=== PATIENT | female | born 1960 | race Caucasian/White ===

== ENCOUNTER → 2023-04-23 | Outpatient (CLI) | payer OTHER, BC, SELFPAY ==
--- NOTE | 2023-04-23 10:47 | RAD_ITS ---
INDICATION: injury EXAMINATION/TECHNIQUE: X-RAY - RIGHT XR Foot Min 3 Views 3 VIEWS COMPARISON: No relevant prior comparison study available FINDINGS: SOFT TISSUES: No soft tissue swelling or gas. No radiopaque foreign body. BONES/JOINTS: There is a cortical defect within the distal diaphysis of the third metatarsal. There is a cortical defect within the distal diaphysis of the fourth metatarsal as well. Normal alignment. Preservation of the joint space.. No sclerotic or destructive changes observed. RAD/Foot min 3 Views IMPRESSION: Third and fourth metatarsal fractures. Electronically Signed: Christa Larsen MD at 12:01 EDT ,
== END | disposition home or self-care (01) ==
PROVIDERS: PCP Family Medicine; Referring Provider Physician Assistant; Visit Provider Physician Assistant
DX: S99.921A Unspecified injury of right foot, initial encounter (principal)
CPT/HCPCS: 73630

== ENCOUNTER → 2023-04-30 | Outpatient (CLI) | payer OTHER, SELFPAY ==
--- NOTE | 2023-04-30 10:02 | RAD_ITS ---
HISTORY: pain. TECHNIQUE: XR Knee Complete 4 Views or More. COMPARISON: None. FINDINGS: BONES : No acute fracture identified. Mineralization unremarkable. Small patellar osteophytes. JOINTS: No dislocation. Mild degenerative change. Trace joint effusion. SOFT TISSUES: Mild anterior soft tissue swelling. RAD/Knee 4 or More Views IMPRESSION: No acute fracture or dislocation identified in the right knee. Electronically Signed: Nicolette Nair MD at 11:06 EDT ,
== END | disposition home or self-care (01) ==
PROVIDERS: PCP Family Medicine; Referring Provider Physician Assistant; Visit Provider Physician Assistant
DX: M25.561 Pain in right knee (principal)
CPT/HCPCS: 73564

== ENCOUNTER 2023-07-03 12:00 | Outpatient (RCR) | payer OTHER, BC, SELFPAY ==
--- NOTE | 2023-06-05 18:18 | HP.PTEVAL_ITS ---
Patient's Visit Information Visit Information Visit Information: SAIGE MEJIA is a 63 year old F referred to Physical Therapy by Dr. Zane Serrano MD with a diagnosis of Metatarsal fx R foot 04/22. Date of Evaluation: 06/05/23 Physical Therapist: Lazaro Minaya, DPT, OCS, CSCS Visit Plan Frequency: 3x /Week Duration: 4-6 Weeks Plan: 3x/week for 4-6 weeks for 1. R toe and ankle STM and PROM, 2. AROM R ankle and foot, strength R ankle, prorioception R foot 3. PRregait to gait training without boot Pt is gentle WBAT R foot but is scared and hesitant to shift weight FW. ice, MH, Subjective Subjective: fell at work 04/22/23 stepping up onto a curb, Rolled R foot in. Couldn't walk on foot immediately, had to use heel. Went to work and had ice on it. Could not put pressure on it. [facility] to [facility]. X rays the next day, fractured 3 toes. Been in and out of boot since then, it was on for first few weeks FWB. Tried to get out of boot but does not go well. Doctor wants her to work toward shoe. Pain in toes up to 8/10 sharp to put it up on something , pretty comfortable in boot now. Still walks on heal.Is doing some DF exercises and trying to walk without boot but only on heal. 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 Not able to drive either. Off for 6 weeks. Hobbies:Gardening and hubby Sebas is doing that now. Basic ADLs are getting done, can't take shower to step into tub. Pain R toes top foot: Pain Intensity (Out of 10): 0 Pain Intensity Range: 0 and 8 Objective Objective: R foot in boot walking in and walking without pain. Taking boot off resists WB anywhere except hindfoot onR to the point where the heal is slightly bruised. hesitant to shift weight to forefoot. This makes gait dysfunctional without boot at this point. Trasers chair and bed are I. Able to stand equal WB but alessio on lateral R foot is felt. Movement of toes and ankle on R leg is hesitant, definitive movement of all toes but only about 20% of what she gets on L toes. Ankle DF R -5 and L 5, PF is slow on R but full, inversiona nd eversion are hesitant on R but functional. Sensation in R 3/4/5 toes slightly numby feeling vs L. metatarsals are stiff and protected on R 3/4/5 vs L. pt seems very anxious about weight through R forefoot and needs much education regarding the safety of this. Once educated, she walks slightly better without much increased in pain during and improving gait pattern. Balance/Special Test Scores Lower Extremity Functional Score: 33 Goals Goal 1:: AROM R ankle and toes symmetrical to L without hesitation. 5 degrees AROM DF R. Goal Time Frame: 2-4 Weeks Goal 2:: strength R ankle 5/5 in DF and symmetrical with dynaomometer to L. Goal Time Frame: 2-4 Weeks Goal 3:: walk into and out of PT without boot with normalized gait pattern. Goal Time Frame: 4-6 Weeks Goal 4:: steps reciprocal without rail Goal Time Frame: 4-6 Weeks Goal 5:: Plan to return to work without limitations Goal Time Frame: 4-6 Weeks Goal 6:: LEFS score 74 Goal Time Frame: 4-6 Weeks Rehabilitation Potential Physical Therapy Diagnosis: R foot fracture causing funcitonal gait and mobility problems. Rehabilitation Potential: Good Anticipated Interventions Patient/Client Instruction: Educate patient on: Condition and Plan of Care For the Purpose of:: To decrease pain, To increase ROM, To improve nutrient delivery to tissue, To improve muscle performance and motor function, To increase tolerance to activity/condition/position and To improve gait and locomotor functions Therapeutic Exercise to Include: Strength training, Balance training, Flexibilty training, Gait and locomotor training, Passive ROM and Active ROM For the Purpose of:: To decrease pain, To increase ROM, To improve nutrient delivery to tissue, To improve muscle performance and motor function, To increa se tolerance to activity/condition/position, To improve ability of physical actions for home/community/work/leisure and To improve gait and locomotor functions Manual Therapy Techniques to Include: Mobilization, Passive ROM and Soft tissue mobilization For the Purpose of:: To decrease pain, To increase ROM and To improve nutrient delivery to tissue Cryotherapy (ice pack, ice massage): Yes Thermo therapy (hot pack): Yes For the Purpose of:: To decrease pain, To increase ROM and To improve nutrient delivery to tissue Text: Thank you for the opportunity to evaluate your patient. For Medicare and Medicare HMO plans, please review the plan of care and approve it. It will need to be FAXED BACK to us at [phone] for Medicare purposes. For Medicare only, by signing this I certify the plan of care. Please let me know if there are questions or concerns regarding this plan of care. Physician Signature: Date:
--- NOTE | 2023-10-10 14:32 | HP.PT.NRP ---
Patient Information Patient Information: SAIGE MEJIA was seen in my office for initial evaluation on 06/05/23. The following Plan of Care was established for this patient: POC Established Initial Frequency: 3x /Week Initial Duration: 4-6 Weeks Anticipated Interventions Patient/Client Instruction: Educate patient on: Condition and Plan of Care For the Purpose of:: To decrease pain, To increase ROM, To improve nutrient delivery to tissue, To improve muscle performance and motor function, To increase tolerance to activity/condition/position and To improve gait and locomotor functions Therapeutic Exercise to Include: Strength training, Balance training, Flexibilty training, Gait and locomotor training, Passive ROM and Active ROM For the Purpose of:: To decrease pain, To increase ROM, To improve nutrient delivery to tissue, To improve muscle performance and motor function, To increase tolerance to activity/condition/position, To improve ability of physical actions for home/community/work/leisure and To improve gait and locomotor functions Manual Therapy Techniques to Include: Mobilization, Passive ROM and Soft tissue mobilization For the Purpose of:: To decrease pain, To increase ROM and To improve nutrient delivery to tissue Cryotherapy (ice pack, ice massage): Yes Thermo therapy (hot pack): Yes For the Purpose of:: To decrease pain, To increase ROM and To improve nutrient delivery to tissue Last Seen Last Seen: This patient was last seen in our office 07/03/23. Pertinent comments regarding their Physical therapy will appear below: Pt seen 13 visits of POC but no showed for her last visit and recheck. At this point, it has been over 3 months and I will discontinue due to nonattendance. At this point I will be discontinuing this patient from physical therapy. I would be happy to see this patient again in the future if found appropriate by the physician. Thank you! Lazaro Minaya, DPT, OCS, CSCS Balance/Gait/Functional tests Balance/Special Test Scores Lower Extremity Functional Score: 56
== END 2023-07-03 19:00 | disposition home or self-care (01) ==
LOC: PT 12:00
PROVIDERS: PCP Family Medicine; Referring Provider Orthopaedic Surgery Sports Medicine; Visit Provider Orthopaedic Surgery Sports Medicine
DX: S92.301D Fracture of unspecified metatarsal bone(s), right foot, subsequent encounter for fracture with routine healing (principal)
CPT/HCPCS: 97110; 97140; 97161; 97530

== ENCOUNTER → 2023-12-30 | Outpatient (CLI) | payer BC, SELFPAY ==
[2023-12-30 12:59] LABS: Absolute Lymphocyte Count 1.76 X10^3/uL (0.83-4.51); Absolute Neutrophil Count 3.9 X10^3/uL (2.0-7.7); Basophil# 0.03 X10^3/uL; Basophil% 0.5 % (0-1); Eosinophil# 0.06 X10^3/uL; Hematocrit 43.3 % (37-47); Lymphocyte # 1.76 X10^3/ul (0.83-4.51); Lymphocyte % 28.1 % (19-41); Mean Corp Hgb Conc 32.3 g/dL (32-36); Mean Corpuscular Hgb 30.4 pg (27.0-32.0); Mean Corpuscular Volume 93.9 fL (81-99); Mean Platelet Vol. 13.2 fl (6.2-12.0); Monocyte# 0.49 X10^3/uL; Monocyte% 7.8 % (0-10); NRBC Flagged by Analyzer 0 % (0-5); Neutrophil # 3.92 X10^3/uL (2.7-7.7); Neutrophil % 62.4 % (47-70); POSITIVE COUNT YES; Platelet Count 175 K/mm3 (150-450); RBC Distribution Width CV 12.1 % (11.6-14.6); RBC Distribution Width SD 41.8 fl (35.1-43.9); Red Blood Count 4.61 M/mm3 (4.2-5.4); White Blood Count 6.3 K/mm3 (4.4-11.0)
[2023-12-30 13:11] LABS: ALB/GLOB Ratio 1.1 RATIO (0.9-2.4); AST(SGOT) 24 U/L (15-37); Alanine Aminotransfer ALT/SGPT 30 U/L (13-56); Alkaline Phosphatase 80 U/L (45-117); Anion Gap 5 (5-15); BUN 16 mg/dL (7-18); BUN/Creat Ratio 17.7 RATIO (10-20); Calcium,Total 9.8 mg/dL (8.5-10.1); Chloride 107 mmol/L (98-107); Cholesterol 182 mg/dL (200); EST Glomerular Filtration Rate 67 mL/min (>60); Est Glom Filt Rate - Afr Amer 81 mL/min (>60); Globulin 3.5 g/dL (2.2-4.2); Glucose 95 mg/dL (74-106); High Density Lipoprotein 44 mg/dL; Potassium 4.5 mmol/L (3.5-5.1); Protein, Total 7.5 g/dL (6.4-8.2); Sodium Level 140 mmol/L (136-145); Triglycerides 202 mg/dL; Very Low Density Lipoprotein 40 mg/dL (5-40)
== END | disposition home or self-care (01) ==
PROVIDERS: PCP Family Medicine; Visit Provider Family Medicine
DX: K58.9 Irritable bowel syndrome, unspecified (principal)
CPT/HCPCS: 36415; 80053; 80061; 85025

== ENCOUNTER → 2024-02-13 | Outpatient (CLI) | payer BC, SELFPAY ==
--- NOTE | 2024-02-13 07:50 | BI_ITS ---
MAMMOGRAPHY - BILATERAL SCREENING REASON FOR EXAM: Female, 63 years old. Routine annual screening examination. PERTINENT HISTORY: Non-contributory. TECHNIQUE: Digital bilateral breast claire (3D mammographic acquisition) in the CC and MLO projections. 2-D mediolateral oblique (MLO) and craniocaudad (CC) views of both breasts were obtained. CAD: Full Field Digital Mammography with Computer Added Detection was performed. COMPARISON: Comparison is made with prior outside examination dated November 06, 2016. FINDINGS: Breast Composition: The breasts are almost entirely fatty. There are no dominant masses or suspicious calcifications. Stable benign-appearing bilateral axillary lymph nodes. No other significant abnormalities are identified. There has been no significant change since the prior study. BI/SCRN MAMM (CAD)W/CLAIRE BILAT IMPRESSION: Stable bilateral screening mammogram. Yearly follow-up mammogram recommended. (A) ASSESSMENT CATEGORY: BIRADS Category 2: Benign. A letter regarding these results will be sent to the patient by the facility within 30 days. Approximately 10% of breast cancers are not detected by mammography. A normal mammogram should not delay biopsy of a clinically suspicious abnormality. [id number] Electronically Signed: Dany Kellogg MD at 8:57 EDT ,
== END | disposition home or self-care (01) ==
PROVIDERS: PCP Family Medicine; Referring Provider Family Medicine; Visit Provider Family Medicine
DX: Z12.31 Encounter for screening mammogram for malignant neoplasm of breast (principal)
CPT/HCPCS: 77063; 77067

== ENCOUNTER 2024-02-17 08:05 | Outpatient (CLI) | payer BC, SELFPAY | END 2024-02-17 23:59 | disposition home or self-care (01) | PROVIDERS: PCP Family Medicine; Referring Provider Family Medicine; Visit Provider Family Medicine | DX: Z83.79 Family history of other diseases of the digestive system (principal) | CPT/HCPCS: 36415 ==

== ENCOUNTER → 2025-07-22 | Outpatient (CLI) | payer BC, SELFPAY | END | disposition home or self-care (01) | LOC: LABSPEC 07-25 08:26 | PROVIDERS: PCP Family Medicine; Visit Provider Physician Assistant Surgical | DX: R82.90 Unspecified abnormal findings in urine (principal) | CPT/HCPCS: 87086; 87088 ==

== ENCOUNTER 2025-08-06 01:55 | Emergency (ER) | payer BC, SELFPAY ==
[2025-08-06] VITALS (7 sets, daily range): BP systolic 118–139; BP diastolic 73–88; PULSE 66–90; RESP 14–18; TEMP 36.2–36.6; O2SAT 100; BMI 25.4
--- NOTE | 2025-08-06 02:00 | EKG12_ITS ---
Test Reason : DYSRHYTHMIA Blood Pressure : */* mmHG Vent. Rate : 84 BPM Atrial Rate : 84 BPM P-R Int : 162 ms QRS Dur : 72 ms QT Int : 366 ms P-R-T Axes : 50 12 46 degrees QTcB Int : 432 ms Normal sinus rhythm Normal ECG No previous ECGs available Confirmed by Sean Lucas ([id number]), make up editor AIDA RECIO ([id number]) on 08/09/2025 8:49:09 AM Referred By: Confirmed By: Sean Lucas
--- NOTE | 2025-08-06 02:10 | ED.VIS.DYS ---
HPI History of Present Illness Chief Complaint: Shortness of Breath Narrative Narrative: Patient was seen and examined after presenting to ED for shortness of breath started tonight she has been dealing with a UTI was on antibiotics for that does report also having chills. [facility] Medical History Right knee pain Fracture of metatarsal of right foot, closed Contact dermatitis due to plant GERD (gastroesophageal reflux disease) IBS (irritable bowel syndrome) Seasonal allergies Home Medications ?Medication ?Instructions ?Recorded ?Last Taken ?Type famotidine 20 mg tablet 20 mg PO DAILY 12/30/23 Unknown History lactobacillus combination no.4 3 3,000 mmu cells PO DAILY 12/30/23 Unknown History billion cell capsule (Probiotic) multivitamin (Daily Multi-Vitamin 1 tab PO DAILY 12/30/23 Unknown History tablet) Allergy/AdvReac Type Severity Reaction Status Date / Time gluten Allergy Mild Abd Verified 08/06/25 01:58 cramps/diarrhea Milk Containing Products Allergy Mild Abd Verified 08/06/25 01:58 (Dairy) cramps/diarrhea Family History Mother Anxiety Depression CVA (cerebral vascular accident) Father Arthritis Heart disease Kidney disease Liver disease Ulcer Grandmother Colon cancer Grandfather Skin cancer Social History Smoking Status: Never smoker alcohol intake: never substance use type: does not use what type of physical activity do you participate in: weight training and other details: Cardio frequency: 5-6 times per week ROS ROS ED ROS Narrative Pertinent Positives: Chills shortness of breath diarrhea Pertinent Negatives: Fevers chest pain pressure vomiting body aches The remainder of review of systems negative unless otherwise stated in the HPI above. Systems reviewed including constitutional, psychiatric, cardiovascular, respiratory, integument, HENT, gastrointestinal. EXAM Physical Exam Narrative Exam Narrative: Afebrile hemodynamically stable she was able to ambulate in here without difficulty she is oxygenating well on room air her lungs are otherwise clear no wheezing no stridor no increased work of breathing or retractions. Abdomen is soft nontender nondistended no palpable pulsatile mass she has intact and equal MSPs heart sounds are normal no pericardial friction rub no lower extremity edema or calf tenderness Const Vital Signs: 08/06/25 01:56 08/06/25 01:56 08/06/25 02:00 Temperature 97.2 F L Temperature Source Axillary Pulse Rate 90 Respiratory Rate 18 Respiratory Effort Normal Non-Labored Respiratory Depth Normal Respiratory Pattern Normal Blood Pressure 139/88 H Blood Pressure Mean 105 Pulse Ox 100 100 Oxygen Delivery Method Room Air Room Air Room Air 08/06/25 03:00 08/06/25 04:00 08/06/25 05:00 Temperature Temperature Source Pulse Rate 74 77 76 Respiratory Rate 16 16 16 Respiratory Effort Respiratory Depth Respiratory Pattern Blood Pressure 124/77 H 123/81 H 126/73 H Blood Pressure Mean 92 95 90 Pulse Ox 100 100 100 Oxygen Delivery Method Room Air Room Air Room Air 08/06/25 05:53 08/06/25 06:00 Temperature 98 F Temperature Source Pulse Rate 72 66 Respiratory Rate 16 14 Respiratory Effort Respiratory Depth Respiratory Pattern Blood Pressure 118/75 126/75 H Blood Pressure Mean 89 92 Pulse Ox 100 100 Oxygen Delivery Method Room Air MDM MDM MDM Narrative Medical decision making narrative: Nursing notes, triage notes, available previous documentation, and vital signs were reviewed. Any discrepancies noted were addressed. Differential Diagnoses: Lower suspicion for PE could be viral could be bacterial pneumonia lower suspicion for ACS or heart failure or COPD no history of asthma Interventions: Fluids Given: 1 L normal saline Labs Reviewed: No leukocytosis leukopenia anemia thrombocytopenia electrolyte abnormality renal insufficiency transaminitis lactic acid was 2.1 initial troponin with 12 with a BNP of 39. Negative flu COVID RSV. Delta troponin is 7 Imaging Reviewed: Personally reviewed and interpreted by me: Chest x-ray no obvious pneumonia but she does have some interstitial thickening no edema or pneumothoraces or widened mediastinum EKG: Normal sinus rhythm rate of 84. I do not see evidence of ACS. No evidence of prolonged QT syndrome. No evidence of AV Block. No short [place] intervals, wide QRS, or Delta waves indicative of WPW. No evidence of dagger-like q waves or LVH indicative of Hypertrophic Cardiomyopathy. No evidence of Brugada Syndrome. EKG interpretation is noted and agreed to in the EMR. The interpretation of this patient's EKG contributed directly to the care and management of this patient. Previous Documentation Reviewed: None available or applicable at this time. ED Course: Patient presenting with shortness of breath and having chills we will go ahead and assess for flu COVID RSV get a chest x-ray we will do some basic labs will give her some IV fluids as well. 0506: Patient's workup largely unremarkable besides a slight lactic acidosis of 2.1 she received IV fluids for it we will go ahead and do an ambulatory pulse ox on her however I do suspect that this is likely a viral component. Patient ambulated and did not desaturate she tolerated it well patient was discharged home as patient was doing well and she was agreeable she was given return precautions follow-up recommendations seem to be improving. This note was made utilizing voice recognition software. All attempts were made to correct spelling or other errors prior to note completion. However, due to the fast-paced nature of emergency medicine, some errors may still be present. Lab Data Labs: Laboratory Results - last 24 hr 08/06/25 08/06/25 02:12 04:17 WBC 6.5 RBC 4.38 Hgb 13.5 Hct 41.4 MCV 94.5 MCH 30.8 MCHC 32.6 RDW Std Deviation 43.3 RDW Coeff of Malcolm 12.5 Plt Count 230 MPV 12.3 H Immature Gran % (Auto) 0.200 Neut % (Auto) 49.2 Lymph % (Auto) 41.1 H [place] % (Auto) 8.4 Eos % (Auto) 0.6 Baso % (Auto) 0.5 Absolute Neuts (auto) 3.2 Absolute Lymphs (auto) 2.65 Nucleated RBC % 0 Sodium 142 Potassium 3.9 Chloride 107 Carbon Dioxide 23.6 Anion Gap 12 BUN 16 Creatinine 0.87 Estim Creat Clear Calc 52.58 Est GFR (MDRD) Non-Af 75 BUN/Creatinine Ratio 18.3 Glucose 109 H Lactic Acid 2.1 H* Calcium 9.6 Total Bilirubin 0.41 AST 20 ALT 12 Alkaline Phosphatase 72 Troponin T High Sens 12 Troponin T Hi Sens 2 Hr 7 NT pro BNP II 39 Total Protein 6.9 Albumin 4.4 Globulin 2.5 Albumin/Globulin Ratio 1.8 Radiography Diagnostic Testing: Clinical Impression(s) from Imaging Studies Chest X-Ray 08/06/25 02:42 IMPRESSION: No evidence for acute abnormality. Reading [facility] Discharge Plan Triage Chief Complaint: Shortness of Breath ED Provider: Mak Fabian Dx/Rx/DC Orders Clinical Impression: Shortness of breath, Acute viral syndrome Instructions: ED Viral Syndrome (Adult) Prescriptions: No Action famotidine 20 mg tablet 20 mg PO DAILY Probiotic 3 billion cell capsule 3,000 mmu cells PO DAILY Rx Instructions: administer with a meal multivitamin [Daily Multi-Vitamin] Tablet 1 tab PO DAILY Primary Care Provider: Matheus Balderas Referrals: Matheus Balderas, [Primary Care Provider, Internal Medicine] Activity Restrictions/Additional Instructions: Make sure you stay hydrated take Tylenol and ibuprofen for your symptoms please return if you are feeling worse otherwise follow-up with your doctor Print Language: Nepalese Disposition Disposition: Home, Self Care Discharge Date/Time: 08/06/25 06:14
[2025-08-06] MEDS: 0.9% Normal Saline (1000mL) 1,000 ML 999 ML IV (02:12)
[2025-08-06 02:20] LABS: Hematocrit 41.4 % (37-47); Hemoglobin 13.5 g/dL (12.0-15.0); Immature Granulocytes Count 0.010 X10^3/uL (0.0-0.0); Mean Corp Hgb Conc 32.6 g/dL (32-36); Mean Corpuscular Volume 94.5 fL (81-99); Mean Platelet Vol. 12.3 fl (6.2-12.0); NRBC Flagged by Analyzer 0 % (0-5); Platelet Count 230 K/mm3 (150-450); RBC Distribution Width CV 12.5 % (11.6-14.6); RBC Distribution Width SD 43.3 fl (35.1-43.9); Red Blood Count 4.38 M/mm3 (4.2-5.4); White Blood Count 6.5 K/mm3 (4.4-11.0)
--- NOTE | 2025-08-06 02:42 | RAD_ITS ---
PROCEDURE: CHEST PA AND LATERAL 08/06/2025 REASON FOR EXAM: SHORTNESS OF BREATH TECHNIQUE: Procedure Code: RADCXR Modality: DX Procedure: CHEST PA AND LATERAL COMPARISON: None. FINDINGS: The lungs are expanded. There is no demonstrated parenchymal abnormality. There is no demonstrated pleural abnormality. Normal heart and pericardium. Normal mediastinum and freddy. Normal visualized pulmonary arteries. Normal visualized aortic arch and descending thoracic aorta. Normal visualized thoracic spine. Normal visualized ribs, clavicles, and shoulders. There is no demonstrated abnormality of the visualized soft tissue structures of the upper abdomen. RAD/Chest PA and Lateral IMPRESSION: No evidence for acute abnormality. Reading Location: [facility]
[2025-08-06 02:50] LABS: AST(SGOT) 20 U/L (<=31); Alanine Aminotransfer ALT/SGPT 12 U/L (<=34); Albumin, Serum 4.4 g/dL (3.4-4.8); Alkaline Phosphatase 72 U/L (35-104); Anion Gap 12 (5-15); BUN 16 mg/dL (4-19); BUN/Creat Ratio 18.3 RATIO (10-20); Calcium,Total 9.6 mg/dL (7.6-11.0); Carbon Dioxide 23.6 mmol/L (21.0-32.0); Chloride 107 mmol/L (98-108); Estimated Creatinine Clearance 52.58 ml/min (50-250); Globulin 2.5 g/dL (2.2-4.2); Glucose 109 mg/dL (70-99); Potassium 3.9 mmol/L (3.3-5.1); Pro- Brain NATRIURETIC PEPTIDE 39 pg/mL (<=900); Troponin T High Sensitivity 12 ng/L (<=14)
--- OUTSIDE RECORDS SUMMARY | 2025-08-06 03:02 | XMS RPT_ITS | CCD ---
Author Organization [facility] Care Team Providers Care Blood Bank Technologist Name Role Phone Dr. Matheus Balderas Primary Care Provider [phone] Dr. Matheus Balderas Referring Provider [phone] MARIBELL Lyles Attending Provider Dr. Matheus Balderas Primary Care Provider [phone] Dr. Matheus Balderas Attending Provider [phone] Matheus Balderas Referring Provider [phone] Dr. Matheus Balderas DO Primary Care Provider [phone] Dr. Matheus Badleras DO Referring Provider Nehemiah Lyles Attending Provider [phone] Nehemiah Lyles Attending Unavailable Matheus Balderas Referring Unavailable Matheus Balderas Primary Care Unavailable Allergies Allergy Classification Reported Allergen(s) Allergy Type Date of Onset Reaction(s) Facility (2 sources) Wheat gluten extract Drug Allergy 4 Abd cramps/diarrhea [facility] (2 sources) Milk Containing Products (Dairy) Allergy to substance 4 Abd cramps/diarrhea [facility] (1 source) Gluten Drug allergy (disorder) 5 [facility] (1 source) Milk Containing Products (Dairy) Drug allergy (disorder) 5 [facility] Medications Current Medications Medication Drug Class(es) Dates Sig (Normalized) Sig (Original) famotidine 20 mg oral tablet (2 sources) Histamine-2 Receptor Antagonist Start: 12-30-2023 take 1 tablet by mouth once daily Famotidine 20 mg tablet Active 20 mg PO DAILY December 30, 2023 12:00am Lactobacillus Combination No.4 (Probiotic) 3 billion cell capsule (2 sources) Start: 12-30-2023 take 3 capsules by mouth once daily Lactobacillus Combination No.4 (Probiotic) 3 billion cell capsule Active 3000 NMA PO DAILY December 30, 2023 12:00am administer with a meal Start: 12-30-2023 take 3 capsules by m outh once daily Lactobacillus Combination No.4 (Probiotic) 3 billion cell capsule Active 3000 MMU CELLS PO DAILY December 30, 2023 12:00am administer with a meal levocetirizine dihydrochloride 5 mg oral tablet (3 sources) Histamine-1 Receptor Antagonist Start: 01-29-2022 take 1 tablet by mouth once daily Levocetirizine (Xyzal) 5 mg tablet Active 5 mg PO DAILY January 29, 2022 12:00am mecobalamin 1 mg chewable tablet (2 sources) Start: 12-30-2023 take 1 tablet by mouth once daily Mecobalamin (Vitamin B12) 1,000 mcg tablet,chewable Active 1000 ug PO DAILY December 30, 2023 12:00am Multivitamin (Daily Multi-Vitamin) tablet (2 sources) Start: 12-30-2023 Multivitamin (Daily Multi-Vitamin) tablet Active 1 {tbl} PO DAILY December 30, 2023 12:00am Start: 12-30-2023 take 1 tablet by stacey th once daily Multivitamin (Daily Multi-Vitamin) tablet Active 1 TABLET PO DAILY December 30, 2023 12:00am predniSONE 10 mg oral tablet (7 sources) Start: 01-26-2025 take 4 tablets by mouth once daily, then take 3 tablets by mouth once daily, then take 2 tablets by mouth once daily, then take 1 tablet by mouth once daily Prednisone 10 mg tablet Active 10 mg PO DAILY January 26, 2025 12:00am 4 tablets daily x3 days, then 3 tablets daily x3 days, then 2 tablets daily x3 days, then 1 tablet daily x3 days Start: 01-29-2022 End: 02-10-2022 Prednisone 10 mg tablet Disc ontinued 10 mg PO daily 30 08January 29, 2022 12:00am February 09, 2022 12:00am February 10, 2022 12:04am Take 4 tabs once daily days 1-3 3 tabs once daily days 4-6 2 tabs once daily days 7-9 and 1 tab once daily days 10-12. Start: 05-24-2021 End: 12-22-2021 take 4 tablets by mouth once daily, then take 3 tablets by mouth once daily, then take 2 tablets by mouth once daily, then take 1 tablet by mouth once daily Prednisone 10 mg tablet Discontinued 10 mg PO DAILY May 24, 2021 12:00am December 22, 2021 11:43am 4 tablets daily for 3 days, then 3 tablets daily for 3 days, then 2 tablets daily for 3 days, then 1 tablet daily for 3 days Completed/Discontinued Medications Medication Drug Class(es) Dates Sig (Normalized) Sig (Original) amoxicillin 500 mg oral capsule (6 sources) Penicillin-class Antibacterial Start: 12-30-2022 End: 01-09-2023 take 1 capsule by mouth three times daily Amoxicillin 500 mg capsule Discontinued 500 mg PO THREE TIMES A DAY 30 06December 30, 2022 12:00am January 08, 2023 12:00am January 09, 2023 12:05am Start: 07-01-2018 End: 11-13-2018 take 1 capsule by mouth twice daily Amoxicillin 500 mg capsule Discontinued 500 mg PO TWICE A DAY July 01, 2018 12:00am November 13, 2018 8:10am benzonatate 100 mg oral capsule (3 sources) Non-narcotic Antitussive Start: 09-09-2019 End: 12-22-2021 take 1 capsule by mouth three times daily as needed for cough Benzonatate 100 mg capsule Discontinued 100 mg PO THREE TIMES A DAY as needed for cough September 09, 2019 1:00am December 22, 2021 11:42am cephalexin 500 mg oral capsule (3 sources) Cephalosporin Antibacterial Start: 12-22-2021 End: 01-01-2022 take 1 capsule by mouth every twelve hours Cephalexin 500 mg capsule Discontinued 500 mg PO Q12H 20 06December 22, 2021 12:00am December 31, 2021 12:00am January 01, 2022 12:04am dexamethasone 6 mg oral tablet (2 sources) Corticosteroid Start: 08-13-2023 End: 12-30-2023 take 1 tablet by mouth once daily Dexamethasone 6 mg tablet Discontinued 6 mg PO DAILY August 13, 2023 1:00am December 30, 2023 10:01am loratadine 10 mg oral tablet (3 sources) Start: 07-01-2018 End: 01-29-2022 take 1 tablet by mouth once daily as needed Loratadine (Claritin) 10 mg tablet Discontinued 10 mg PO DAILY as needed July 01, 2018 12:00am January 29, 2022 8:28am omeprazole 20 mg delayed release oral capsule (20 sources) Proton Pump Inhibitor Start: 03-26-2018 End: 05-01-2023 take 1 capsule by mouth once daily Omeprazole 20 mg capsule,delayed release(DR/EC) Discontinued 20 mg PO daily September 04, 2020 6:35pm May 01, 2023 1:57pm raNITIdine 150 mg oral tablet (3 sources) Histamine-2 Receptor Antagonist Start: 07-01-2018 End: 09-09-2019 take 1 tablet by mouth once daily Ranitidine Hcl (Zantac) 150 mg tablet Discontinued 150 mg PO DAILY July 01, 2018 12:00am September 09, 2019 2:03pm sulfamethoxazole 800 mg / trimethoprim 160 mg oral tablet (3 sources) Dihydrofolate Reductase Inhibitor Antibacterial, Sulfonamide Antimicrobial Start: 01-15-2021 End: 01-22-2021 Sulfamethoxazole-T rimethoprim (Bactrim Ds) 800-160 mg tablet Discontinued 1 {tbl} PO Q12H 14 7 January 15, 2021 12:00am January 21, 2021 12:00am January 22, 2021 12:01am valACYclovir 1000 mg oral tablet (3 sources) Herpesvirus Nucleoside Analog DNA Polymerase Inhibitor, Herpes Simplex Virus Nucleoside Analog DNA Polymerase Inhibitor, Herpes Zoster Virus Nucleoside Analog DNA Polymerase Inhibitor Start: 11-13-2018 End: 09-09-2019 Valacyclovir 1 gram tablet Discontinued 1000 mg PO THREE TIMES A DAY November 13, 2018 12:00am September 09, 2019 2:03pm Start: 11-13-2018 End: 09-09-2019 take 1000 mg by mouth three times daily Valacyclovir Discontinued 1000 MG PO THREE TIMES A DAY November 13, 2018 12:00am September 09, 2019 2:03pm Problems Problem Classification Problem Date Documented Da te Episodic/Chronic Allergic reactions (6 sources) Contact dermatitis due to plants; Translations: [Unspecified contact dermatitis due to plants, except food] 09-23-2021 Episodic Esophageal disorders (3 sources) Gastroesophageal reflux disease; Translations: [Gastro-esophageal reflux disease without esophagitis] 07-01-2018 Chronic Fracture of lower limb (4 sources) Closed fracture of metatarsal bone; Translations: [Fracture of unspecified metatarsal bone(s), right foot, initial encounter for closed fracture] 04-23-2023 Episodic Immunizations and screening for infectious disease (3 sources) Requires diphtheria, tetanus and pertussis vaccination; Translations: [Encounter for immunization] 03-06-2021 Episodic Other gastrointestinal disorders (3 sources) Irritable bowel syndrome; Translations: [Irritable bowel syndrome without diarrhea] 07-01-2018 Chronic Other gastrointestinal disorders (1 source) Irritable bowel syndrome without diarrhea; Translations: [Irritable bowel syndrome] 12-30-2023 Chronic Other non-traumatic joint disorders (2 sources) Pain in right knee; Translations: [Right knee pain] 05-01-2023 Episodic Other upper respiratory disease (3 sources) Seasonal allergy; Translations: [Other seasonal allergic rhinitis] 07-01-2018 Chronic Other upper respiratory infections (4 sources) Acute sinusitis; Translations: [Acute sinusitis, unspecified] 12-22-2021 Episodic Viral infection (2 sources) Disease caused by 2019-nCoV; Translations: [COVID-19] 08-13-2023 Episodic Results Test Name Value Interpretation Reference Range Facility Urgent Care Visit Reporton 0 01-26-2025 Urgent Care Visit Report [facility] [address], [address] [place] [address] OFFICE VISIT Date of Service: 01/26/25 MR#: [id number] Acct: [id number] Name: SAIGE MEJIA Rep #: [id number] : 1960 Provider: MARIBELL Reina Age/Sex: 64/F Location: [facility] Status: Signed Intake Vital Signs 12/30/23 10:02 01/26/25 12:51 Height 5 ft BP 122/58 H Blood Pressure Location Lt brachial Position Sitting Respiration 15 Pulse 72 Pulse Source NIBP Temp 98.2 F Temp Source Oral Pulse Oximetry (%) 98 Oxygen Delivery Method room air Intake Visit Reasons: POSSIBLE POISON KWESI Chief Complaint: rash Tour Operator Required: No Is patient in pain?: No Allergies gluten Allergy (Mild, Verified 01/26/25 12:52) Abd cramps/diarrhea Milk Containing Products (Dairy) Allergy (Mild, Verified 01/26/25 12:52) Abd cramps/diarrhea Is last menstrual period known: No Post menopausal: Yes Patient : No Have you fallen in the past year?: No Nurse's Note: rash with intense itching to bilateral wrists x 3 days. pt concern for poison kwesi after cleaning out garden beds. denies additional areas of concern. [facility] Medical History Contact dermatitis due to plant Fracture of metatarsal of right foot, closed GERD (gastroesophageal reflux disease) IBS (irritable bowel syndrome) Right knee pain Seasonal allergies Family History Mother Anxiety Depression CVA (cerebral vascular accident) Father Arthritis Heart disease Kidney disease Liver disease Ulcer Grandmother Colon cancer Grandfather Skin cancer Social History Smoking Status: Never smoker alcohol intake: never substance use type: does not use what type of physical activity do you participate in: weight training and other details: Cardio frequency: 5-6 times per week HPI HPI Chief Complaint: rash Details: SAIGE MEJIA, is a 64 F who presents to the office today for initial evaluation status post poison kwesi exposure after pulling weeds in her flower garden approximately 3 days ago. Patient states she has used multiple [id number] topical applications as well as oral Benadryl without relief of symptoms. She notes pruritic rash to bilateral wrists with excoriations. No complaints of constricted/pruritic airway or chest pain/shortness of breath/wheeze/dyspne a on exertion. No other associated symptoms and no other alleviating/aggravat ing factors. ROS Const Constitutional: No other (As above) Exam Const General: cooperative, healthy appearing and no acute distress Nutritional Appearance: average body habitus Orientation: alert, awake and oriented x3 HENMT Head: normal to inspection Ears: hearing grossly normal bilaterally, external ears normal, TM's normal bilaterally and EAC's normal Nose: external nose normal, nares normal, septum normal and no nasal discharge Face and sinus: normal facial exam, sinuses nontender and face symmetric Mouth: oral mucosae normal, lip normal, tongue normal and oropharynx normal Throat: posterior oropharynx normal, tonsils normal, uvula midline and no postnasal drainage Eyes General: appearance normal, both eyes and all related structures Neck Neck: normal visual inspection, full ROM, no lymphadenopathy, no meningeal signs and supple Neck mass: No Thyroid: thyroid normal Lymphatic: no lymphadenopathy noted Chest Chest palpation inspection: normal inspection of the chest Resp Effort Inspection: normal respiratory effort and able to speak in complete sentences Auscultation: Bilateral: Clear to Auscultation Cardio Palpation: normal PMI Rate: regular rate Rhythm: regular rhythm Heart Sounds: S1 normal, S2 normal, no gallops, no murmurs and no rubs Pulses: radial pulses present GI Inspection: normal to inspection Skin General: no rashes or lesions noted Other: Except clustered vesicular rash to bilateral wrists with excoriations Neuro General: patient alert, patient awake and patient oriented x3 Cognition: normal cognition Speech: speech normal Extrem General: normal to inspection Psych Appearance: grossly normal Mental Status: mental status grossly normal Mood: congruent mood Affect: normal affect Speech and Movement: speech and movement normal Attitude: cooperative Diagnoses Contact dermatitis due to poison kwesi L23.7 Assessment and Plan Assessment and Plan (1) Contact dermatitis due to poison kwesi: Status: Acute Plan: Prednisone as prescribed today. Supportive measures as instructed today. Follow-up with PCP in 3 to 5 days should symptoms not improve, ED sooner should symptoms worsen or any other concerns develop. Patient (more content not included)... Normal [facility] Absolute lymphocyte countOrd ered By: Matheus Balderas on 12-30-2023 Lymphocytes Auto (Unsp spec) [#/Vol] 1.76 10*3/uL 0.83-4.51 [facility] Automated lymphocyte count a s percentage of total leukocytesOrdered By: Matheus Balderas on 12-30-2023 Lymphocytes/100 WBC Auto (Unsp spec) 28.1 % 19-41 [facility] Basophil percentageOrdered B y: Matheus Balderas on 12-30-2023 Basophils/100 WBC (Bld) 0.5 % 0-1 [facility] Bilirubin [Mass/Vol] 0.30 mg/dL 0.20-1.00 [facility] Comment on above: For patients on eltr ombopag therapy, use of Dimension [place] TBIL is not recommended. Chloride [Moles/Vol] 107 mmol/L 98-107 [facility] Cholesterol [Mass/Vol] 182 mg/dL <200 [facility] Comment on above: <200 mg/dL Desirable 200-240 mg/dL Borderline >240 mg/dL High Risk Eosinophils/100 WBC (Bld) 1.0 % 0-5 [facility] Glucose [Mass/Vol] 95 mg/dL 74-106 [facility] Hemoglobin (Bld) [Mass/Vol] 14.0 g/dL 12.0-15.0 [facility] Monocytes/100 WBC (Bld) 7.8 % 0-10 [facility] Neutrophils (Bld) [#/Vol] 3.9 10*3/uL 2.0-7.7 [facility] Neutrophils/100 WBC (Bld) 62.4 % 47-70 [facility] Potassium [Moles/Vol] 4.5 mmol/L 3.5-5.1 [facility] Protein [Mass/Vol] 7.5 g/dL 6.4-8.2 [facility] Sodium [Moles/Vol] 140 mmol/L 136-145 [facility] Triglyceride [Mass/Vol] 202 mg/dL <199 [facility] Comment on above: The drugs N-Acetylcy steine and Metamizole may falsely depress this assay.Serum Triglycerides Reference Interval Normal <150 mg/dL Borderline high 150 - 199 mg/dL High 200 - 499 mg/dL Very High > or = 500 mg/dL WBC (Bld) [#/Vol] 6.3 10*3/uL 4.4-11.0 [facility] Determination of erythrocyte mean corpuscular volume (MCV)Ordered By: Matheus Balderas on 12-30-2023 MCV (RBC) [Entitic vol] 93.9 fL 81-99 [facility] Erythrocyte distribution wid th ratioOrdered By: Matheus Balderas on 12-30-2023 Erythrocyte distribution width (RBC) [Ratio] 12.1 % 11.6-14.6 [facility] Erythrocyte distribution wid th standard deviationOrdered By: Matheus Balderas on 12-30-2023 Erythrocyte distribution width (RBC) [Entitic vol] 41.8 fL 35.1-43.9 [facility] Hematocrit Auto (Bld) [Volum e fraction]Ordered By: Matheus Balderas on 12-30-2023 Hematocrit (Bld) [Volume fraction] 43.3 % 37-47 [facility] Immature granulocytes/100 WB C Auto (Bld)Ordered By: Matheus Balderas on 12-30-2023 Immature granulocytes/100 WBC (Bld) 0.200 % 0.0-0.9 [facility] Comment on above: IG% - Immature Granu locytes (promyelocytes, myelocytes and metamyelocytes) > 1% indicates that a LEFT SHIFT is Present. Laboratory - Chemistry and C hemistry - challengeOrdered By: Matheus Balderas on 12-30-2023 Albumin/Globulin [Mass ratio] 1.1 {ratio} 0.9-2.4 [facility] ALP [Catalytic activity/Vol] 80 U/L 45-117 [facility] ALT [Catalytic activity/Vol] 30 U/L 13-56 [facility] Cholesterol in HDL [Mass/Vol] 44 mg/dL >40 [facility] Comment on above: The drugs N-Acetylcy steine and Metamizole may falsely depress this assay. Reference Range HDL <40 mg/dL Low HDL Cholesterol HDL >or= 60 mg/dL High HDL Cholesterol Cholesterol in LDL [Mass/Vol] 98 mg/dL 0-130 [facility] CO2 [Moles/Vol] 28.0 mmol/L 21.0-32.0 [facility] Globulin (S) [Mass/Vol] 3.5 g/dL 2.2-4.2 [facility] Urea nitrogen/Creatinine [Mass ratio] 17.7 mg/mg 10-20 [facility] Laboratory - Hematology and Cell countsOrdered By: Matheus Balderas on 12-30-2023 MCH (RBC) [Entitic mass] 30.4 pg 27.0-32.0 [facility] MCHC (RBC) [Mass/Vol] 32.3 g/dL 32-36 [facility] Nucleated RBC/100 WBC (Bld) [Ratio] 0 % 0-5 [facility] Platelet mean volume (Bld) [Entitic vol] 13.2 fL 6.2-12.0 [facility] Platelets (Bld) [#/Vol] 175 10*3/uL 150-450 [facility] No Panel InformationOrdered By: Matheus Balderas on 12-30-2023 Estimated GFR (MDRD) Amer 81 mL/min >60 [facility] Comment on above: GFR Calc Estimated GFR (MDRD) Non-Af Amer 67 mL/min >60 [facility] Comment on above: Non- GFR Calc VLDL Cholesterol 40 mg/dL 5-40 [facility] RBC Auto (Bld) [#/Vol]Ordere d By: Matheus Balderas on 12-30-2023 RBC (Bld) [#/Vol] 4.61 10*6/uL 4.2-5.4 [facility] Serum or plasma calcium deandra urement (mass/volume)Ordered By: Matheus Balderas on 12-30-2023 Calcium [Mass/Vol] 9.8 mg/dL 8.5-10.1 [facility] Serum or plasma creatinine m easurement (mass/volume)Ordered By: Matheus Balderas on 12-30-2023 Creatinine [Mass/Vol] 0.90 mg/dL 0.55-1.02 [facility] Comment on above: The validity of the calculated GFR & GFRAA in patients over 70 years has not been determined. Clinical correlation is essential. Serum or plasma urea nitroge n measurement (mass/volume)Ordered By: Matheus Balderas on 12-30-2023 Urea nitrogen [Mass/Vol] 16 mg/dL 7-18 [facility] Thin prep Papanicolaou smear with manual screeningOrdered By: Matheus Balderas on 12-30-2023 Thin prep Papanicolaou smear with manual screening 4.0 g/dL 3.2-5.0 [facility] Thin prep Papanicolaou smear with manual screening 24 U/L 15-37 [facility] Thin prep Papanicolaou smear with manual screening 5 5-15 [facility] MG Breast Tomosynthesis Scr Blon 01-28-2019 MG Breast Tomosynthesis Scr Bl Patient Name: SAIGE MEJIA Mammography Exam Date/Time 01/28/2019 13:25:00 EDT Exam MG Breast Tomosynthesis BI Scr Ordering Physician DO BALDERAS DOUGLAS R Accession Number [id number] CPT4 Codes 89587 (MG Breast Tomosynthesis Scr Bl), 08489 (MG MAMMO 2D SCREENING) Reason For Exam screening Report PATIENT HISTORY: Patient is postmenopausal. Family history of colorectal cancer at age 50 or over in maternal grandmother. Took hormonal contraceptives for 9 months. Patient has never smoked. Patient's BMI is 22.5. TIME SINCE LAST MAMMOGRAM: Last mammogram was performed 2 years and 3 months ago. REASON FOR EXAM: screening, asymptomatic. PROCEDURE: MG BREAST TOMOSYNTHESIS BL SCR: JANUARY 28, 2019 - 2D/3D Procedure 3D Bilateral CC and MLO view(s) were taken. 2D Bilateral CC and MLO view(s) were taken. Prior study comparison: November 06, 2016, bilateral MG mammogram digital screening performed at [facility]. March 02, 2015, bilateral screening mammogram performed at [facility]. TISSUE DENSITY: There are scattered fibroglandular densities. . FINDINGS: No suspicious masses, architectural distortions or suspiciously clustered microcalcifications are identified. There are no significant changes when compared with prior studies. Markings on images: BB's = Nipples; skin lesions Open oneida = Palpable Line = Scar 2D digital mammography and tomosynthesis imaging were performed and reviewed with CAD. ASSESSMENT: Category 1 Negative No mammographic evidence of malignancy. RECOMMENDATION: Routine screening mammogram of both breasts in 1 year. . Report Dictated on Cancer Risk Assessment: This risk assessment is based on patient provided information collected in a risk survey taken at the time of this examination. Lifetime breast cancer risk: 8.6% - If greater than or equal to 20%, consider annual mammogram and annual screening Breast MRI or follow up in high risk clinic. Is the patient at elevated risk based on the HBOC criteria? No (Hereditary Breast and Ovarian Cancer) - If yes, consider genetic counseling and testing with high risk follow up. HNPCC mutation risk (Pérez Syndrome): 1.9% - if greater than or equal to 5%, consider genetic counseling, testing and screening colonoscopy. Final Signed Date and Time: 01/28/2019 3:32 pm Signed by: MD BOWER KERISTEN L [facility] Vital Signs Date Time Vital Sign Value Performing Clinician Etiennei aarti 01-26-2025 12:51-0400 Body temperature 98.2 [degF] Dr. Matheus Balderas DO Work Phone: [facility] 01-26-2025 12:51-0400 Diastolic blood pressure 58 mm[Hg] Dr. Matheus Balderas DO Work Phone: [facility] 01-26-2025 12:51-0400 Heart rate 72 /min Dr. Matheus Balderas DO Work Phone: [facility] 01-26-2025 12:51-0400 Respiratory rate 15 /min Dr. Matheus Balderas DO Work Phone: [facility] 01-26-2025 12:51-0400 SaO2% (BldA) [Mass fraction] 98 % Dr. Matheus Balderas DO Work Phone: [facility] 01-26-2025 12:51-0400 Systolic blood pressure 122 mm[Hg] Dr. Matheus Balderas DO Work Phone: [facility] 12-30-2023 10:02-0400 Body height 152.[address] Matheus Balderas Work Phone: [facility] 12-30-2023 10:02-0400 Body mass index (BMI) [Ratio] 25.7 kg/m2 Dr. Matheus Balderas Work Phone: [facility] 12-30-2023 10:02-0400 Body temperature 97.6 [degF] Dr. Matheus Balderas Work Phone: [facility] 12-30-2023 10:02-0400 Body weight 59.[address] Matheus Balderas Work Phone: [facility] 12-30-2023 10:02-0400 Diastolic blood pressure 76 mm[Hg] Dr. Matheus Balderas Work Phone: [facility] 12-30-2023 10:02-0400 Heart rate 68 /min Dr. Matheus Balderas Work Phone: [facility] 12-30-2023 10:02-0400 Respiratory rate 16 /min Dr. Matheus Balderas Work Phone: [facility] 12-30-2023 10:02-0400 SaO2% (BldA) [Mass fraction] 97 % Dr. Matheus Balderas Work Phone: [facility] 12-30-2023 10:02-0400 Systolic blood pressure 124 mm[Hg] Dr. Matheus Balderas Work Phone: [facility] 04-23-2023 11:21-0400 Body mass index (BMI) [Ratio] 23.4 kg/m2 Dr. Matheus Balderas Work Phone: [facility] 04-23-2023 11:21-0400 Body weight 54.[address] Matheus Balderas Work Phone: [facility] 04-23-2023 11:21-0400 Diastolic blood pressure 79 mm[Hg] Dr. Matheus Balderas Work Phone: [facility] 04-23-2023 11:21-0400 Heart rate 79 /min Dr. Matheus Balderas Work Phone: [facility] 04-23-2023 11:21-0400 Respiratory rate 16 /min Dr. Matheus Balderas Work Phone: [facility] 04-23-2023 11:21-0400 SaO2% (BldA) [Mass fraction] 94 % Dr. Matheus Balderas Work Phone: [facility] 04-23-2023 11:21-0400 Systolic blood pressure 118 mm[Hg] Dr. Matheus Balderas Work Phone: [facility] 12-30-2022 17:26-0400 Body temperature 97.8 [degF] Dr. Matheus Balderas Work Phone: [facility] 12-30-2022 17:26-0400 Diastolic blood pressure 58 mm[Hg] Dr. Matheus Balderas Work Phone: [facility] 12-30-2022 17:26-0400 Heart rate 90 /min Dr. Matheus Balderas Work Phone: [facility] 12-30-2022 17:26-0400 Respiratory rate 16 /min Dr. Matheus Balderas Work Phone: [facility] 12-30-2022 17:26-0400 SaO2% (BldA) [Mass fraction] 98 % Dr. Matheus Balderas Work Phone: [facility] 12-30-2022 17:26-0400 Systolic blood pressure 102 mm[Hg] Dr. Matheus Balderas Work Phone: [facility] Encounters Encounter Date Encounter Type Care Provider Facility Start: 01-26-2025 End: 01-26-2025 Patient encounter procedure Nehemiah Corona [facility] Work Phone: Start: 01-26-2025 End: 01-26-[address] Matheus Balderas DO Work Phone: [facility] Work Phone: Start: 12-30-2023 End: 12-30-[address] Matheus Balderas Work Phone: [facility] Work Phone: Start: 12-30-2023 End: 12-30-[address] Matheus Balderas Work Phone: [facility] Work Phone: Start: 04-23-2023 End: 04-23-[address] Matheus Balderas Work Phone: [facility] Work Phone: Start: 04-23-2023 End: 04-23-[address] Matheus Balderas Work Phone: [facility] Work Phone: Start: 12-30-2022 End: 12-30-[address] Matheus Balderas Work Phone: [facility] Work Phone: Procedures Date Procedure Procedure Detail Performing Clinician Start: 04-23-2023 X-ray of both feet Dr. Matheus Balderas Work Phone: Plan of Treatment Date Care Activity Detail Author Start: 04-23-2023 Patient referral [facility] Work Phone: MG Breast - bilateral Screening [facility] Patient referral [facility] Work Phone: Immunizations Immunization Date Immunization Notes Care Provider Fa cility 03-06-2021 tetanus toxoid, redu mendez diphtheria toxoid, and acellular pertussis vaccine, adsorbed Dr. Matheus Balderas Work Phone: [facility] Payers Date Payer Category Payer Self-pay [id number] 2025 Unknown [id number] Unknown SELF INS CONSTITUTION STATE SE [id number] Unknown [facility] [employer] [id number] Unknown SELF INS CONSTITUTION STATE SE [id number] Unknown [id number] Social History Date Type Detail Facility Start: 04-29-2023 End: 08-13-2023 Tobacco smoking status NHIS Unknown if ever smoked [facility] Start: 1960 Sex Assigned At Female [facility] Start: 08-13-2023 Tobacco smoking stat us NHIS Never smoked tobacco (finding) [facility] Evaluation note Note Date & Type Note Facility Evaluation note Diagnosis Onset Date Acute sinusitis acute Fracture of metatarsal of right foot, closed acute [facility] Work Phone: Evaluation note Note Date & Type Note Facility Evaluation note Diagnosis Onset Date Annual physical exam acute IBS (irritable bowel syndrome) chronic [facility] Work Phone: Evaluation note Note Date & Type Note Facility Evaluation note No assessment information availa bartolo [facility] Work Phone: Reason for referral (narrative) Note Date & Type Note Facility Reason for referral (narrative) No reason for referral information available [facility] Work Phone: Summary Purpose Family History No Family History Records Found Relationship Condition Age at Onset Recorded Date/T herson mother Anxiety Unknown Depression Unknown Cerebrovascular accident (CVA) Unknown father Arthritis Unknown Cardiac disease Unknown Kidney disorder Unknown Disorder of liver Unknown Ulcerative lesion Unknown grandmother Malignant neoplasm of colon Unknown grandfather Malignant neoplasm of skin Unknown Advance Directives No Advanced Directives Records FoundNo Advanced Directives Records Found Chief Complaint and Reason for Visit Chief Complaint Sinus infection OBWC/R FOOT INJURY/SWELLING/PAIN/PNC Reason for Visit Acute sinusitis Fracture of metatarsal of right foot, closed Chief Complaint chk up Reason for Visit Annual physical exam IBS (irritable bowel syndrome) Chief Complaint Admit Date POSSIBLE POISON KWESI January 26, 2025 12:46 pm Additional Source Comments INFORMATION SOURCE (unrecogn ized section and content) DATE CREATED AUTHOR 03/25/2019 [facility] [email or web address] DATE CREATED AUTHOR AUTHOR'S ORGANIZ ATION 04/15/2025 [facility] Care Teams (unrecognized sec tion and content) Team Status: Active Member Role Status Dates Dr. Matheus Balderas DO Primary Care Provider Active Team Status: Inactive Member Role Status Dates Dr. Matheus Balderas DO Primary Care Provider, Referr ing Provider Active Nehemiah REYNA PA Attending Provider Active Team Status: Inactive Member Role Status Dates Dr. Matheus Balderas DO Primary Care Provider Active Nehemiah REYNA PA Attending Provider, Referring Pr ovider Active Team Status: Inactive Member Role Status Dates Dr. Matheus Balderas DO Primary Care Pr ovider, Attending Provider, Referring Provider Active Team Status: Inactive Member Role Status Dates Dr. Matheus Balderas DO Primary Care Provider, Attend ing Provider Active Team Status: Inactive Member Role Status Dates Dr. Matheus Balderas DO Primary Care Provider Active Start: January 26, 2025 End: January 26, 2025 Dr. Matheus R Brown , DO Referring Provider Active Start: January 26, 2025 End: January 26, 2025 Nehemiah REYNA, PA Attending Provider Active Start: January 26, 2025 End: January 26, 2025 Goals (unrecognized section and content) Goals may be documented in a n alternate sectionGoals may be documented in an alternate sectionGoals may be documented in an alternate section FOR RECORDS PERTAINING TO PATIENTS WHO ARE OR HAVE BEEN ENROLLED IN A CHEMICAL DEPENDENCY/SUBSTANCEABUSE PROGRAM, SOME INFORMATION MAY BE OMITTED. This clinical summary was aggregated from multiple sources. Caution should be exercised in using it in the provision of clinical care. This summary normalizes information from multiple sources, and as a consequence, information in this document may materially change the coding, format and clinical context of patient data. In addition, data may be omitted in some cases. CLINICAL DECISIONS SHOULD BE BASED ON THE PRIMARY CLINICAL RECORDS. [facility] [employer] [facility]. provides no warranty or guarantee of the accuracy or completeness of information in this document.
[2025-08-06 04:42] LABS: Troponin T High Sens 2 HR 7 ng/L (<=14)
[2025-08-06 06:16] LABS: Reflex Lactate? Y
== END 2025-08-06 06:14 | disposition home or self-care (01) ==
PROVIDERS: Emergency Provider Specialist/Technologist Athletic Trainer; PCP Family Medicine; Visit Provider Specialist/Technologist Athletic Trainer
DX: B34.9 Viral infection, unspecified (principal); R06.02 Shortness of breath
CPT/HCPCS: 71046; 80053; 83605; 83880; 84484; 85025; 87631; 93005; 96360; 96361; 99284; A4216

== ENCOUNTER → 2025-08-12 | Outpatient (CLI) | payer BC, SELFPAY ==
--- NOTE | 2025-08-12 08:25 | US_ITS ---
PROCEDURE: GALLBLADDER 08/12/2025 REASON FOR EXAM: RIGHT UPPER QUADRANT PAIN TECHNIQUE: Procedure Code: USGB Modality: US Procedure: GALLBLADDER COMPARISON: None FINDINGS: Liver: The liver is increased in echogenicity and has a lobulated margin consistent with cirrhosis. Normal in size. Gallbladder: No stones, sludge, wall thickening or tenderness. Common bile duct: Normal measuring 3 mm. Pancreas: Visualized portions are sonographically unremarkable. Other: There is perihepatic ascites. US/Gallbladder IMPRESSION: The liver appears fatty and cirrhotic. There is perihepatic ascites. Reading Location: [place] [address]
--- OUTSIDE RECORDS SUMMARY | 2025-08-12 08:46 | XMS RPT_ITS | CCD ---
Author Organization [facility] Care Team Providers Care Perishable Fruit Inspector Name Role Phone Dr. Matheus Balderas Primary Care Provider [phone] Dr. Matheus Balderas Referring Provider [phone] MARIBELL Lyles Attending Provider Dr. Matheus Balderas Primary Care Provider [phone] Dr. Matheus Balderas Attending Provider [phone] Matheus Balderas Referring Provider [phone] Dr. Matheus Balderas DO Primary Care Provider Dr. Matheus Balderas DO Referring Provider Nehemiah Lyles Attending Provider [phone] Nehemiah Lyles Attending Unavailable Matheus Balderas Referring Unavailable Matheus Balderas Primary Care Unavailable Allergies Allergy Classification Reported Allergen(s) Allergy Type Date of Onset Reaction(s) Facility (2 sources) Wheat gluten extract Drug Allergy 4 Abd cramps/diarrhea [facility] (2 sources) Milk Containing Products (Dairy) Allergy to substance 4 Abd cramps/diarrhea [facility] (1 source) Gluten Drug allergy (disorder) 5 [facility] (1 source) Milk Containing Products (Dairy) Drug allergy (disorder) 5 [facility] Medications Current Medications Medication Drug Class(es) [...] Reporton 0 01-26-2025 Urgent Care Visit Report [facility] [address], [address] [place] [address] OFFICE VISIT Date of Service: 01/26/25 MR#: [id number] Acct: [id number] Name: SAIGE MEJIA Rep #: [id number] : 1960 Provider: MARIBELL Reina Age/Sex: 64/F Location: [facility] Status: Signed Intake Vital Signs 12/30/23 10:02 01/26/25 12:51 Height 5 ft BP 122/58 H Blood Pressure Location Lt brachial Position Sitting Respiration 15 Pulse 72 Pulse Source NIBP Temp 98.2 F Temp Source Oral Pulse Oximetry (%) 98 Oxygen Delivery Method room air Intake Visit Reasons: POSSIBLE POISON KWESI Chief Complaint: rash Conciliation Court Judge Required: No Is patient in pain?: No [...] garden beds. denies additional areas of concern. [facility] Medical History Contact dermatitis due to plant [...] ago. Patient states she has used multiple [id number] topical applications as well as oral Benadryl [...] develop. Patient (more content not included)... Normal [facility] Absolute lymphocyte countOrd ered By: Matheus Balderas on 12-30-2023 Lymphocytes Auto (Unsp spec) [#/Vol] 1.76 10*3/uL 0.83-4.51 [facility] Automated lymphocyte count a s percentage of total leukocytesOrdered By: Matheus Balderas on 12-30-2023 Lymphocytes/100 WBC Auto (Unsp spec) 28.1 % 19-41 [facility] Basophil percentageOrdered B y: Matheus Balderas on 12-30-2023 Basophils/100 WBC (Bld) 0.5 % 0-1 [facility] Bilirubin [Mass/Vol] 0.30 mg/dL 0.20-1.00 [facility] Comment on above: For patients on eltr ombopag therapy, use of Dimension Howard TBIL is not recommended. Chloride [Moles/Vol] 107 mmol/L 98-107 [facility] Cholesterol [Mass/Vol] 182 mg/dL <200 [facility] Comment on above: <200 mg/dL Desirable 200-240 mg/dL Borderline >240 mg/dL High Risk Eosinophils/100 WBC (Bld) 1.0 % 0-5 [facility] Glucose [Mass/Vol] 95 mg/dL 74-106 [facility] Hemoglobin (Bld) [Mass/Vol] 14.0 g/dL 12.0-15.0 [facility] Monocytes/100 WBC (Bld) 7.8 % 0-10 [facility] Neutrophils (Bld) [#/Vol] 3.9 10*3/uL 2.0-7.7 [facility] Neutrophils/100 WBC (Bld) 62.4 % 47-70 [facility] Potassium [Moles/Vol] 4.5 mmol/L 3.5-5.1 [facility] Protein [Mass/Vol] 7.5 g/dL 6.4-8.2 [facility] Sodium [Moles/Vol] 140 mmol/L 136-145 [facility] Triglyceride [Mass/Vol] 202 mg/dL <199 [facility] Comment on above: The drugs N-Acetylcy steine and Metamizole may falsely depress this assay.Serum Triglycerides Reference Interval Normal <150 mg/dL Borderline high 150 - 199 mg/dL High 200 - 499 mg/dL Very High > or = 500 mg/dL WBC (Bld) [#/Vol] 6.3 10*3/uL 4.4-11.0 [facility] Determination of erythrocyte mean corpuscular volume (MCV)Ordered By: Matheus Balderas on 12-30-2023 MCV (RBC) [Entitic vol] 93.9 fL 81-99 [facility] Erythrocyte distribution wid th ratioOrdered By: Matheus Balderas on 12-30-2023 Erythrocyte distribution width (RBC) [Ratio] 12.1 % 11.6-14.6 [facility] Erythrocyte distribution wid th standard deviationOrdered By: Matheus Balderas on 12-30-2023 Erythrocyte distribution width (RBC) [Entitic vol] 41.8 fL 35.1-43.9 [facility] Hematocrit Auto (Bld) [Volum e fraction]Ordered By: Matheus Balderas on 12-30-2023 Hematocrit (Bld) [Volume fraction] 43.3 % 37-47 [facility] Immature granulocytes/100 WB C Auto (Bld)Ordered By: Matheus Balderas on 12-30-2023 Immature granulocytes/100 WBC (Bld) 0.200 % 0.0-0.9 [facility] Comment on above: IG% - Immature Granu locytes (promyelocytes, myelocytes and metamyelocytes) > 1% indicates that a LEFT SHIFT is Present. Laboratory - Chemistry and C hemistry - challengeOrdered By: Matheus Balderas on 12-30-2023 Albumin/Globulin [Mass ratio] 1.1 {ratio} 0.9-2.4 [facility] ALP [Catalytic activity/Vol] 80 U/L 45-117 [facility] ALT [Catalytic activity/Vol] 30 U/L 13-56 [facility] Cholesterol in HDL [Mass/Vol] 44 mg/dL >40 [facility] Comment on above: The drugs N-Acetylcy steine and Metamizole may falsely depress this assay. Reference Range HDL <40 mg/dL Low HDL Cholesterol HDL >or= 60 mg/dL High HDL Cholesterol Cholesterol in LDL [Mass/Vol] 98 mg/dL 0-130 [facility] CO2 [Moles/Vol] 28.0 mmol/L 21.0-32.0 [facility] Globulin (S) [Mass/Vol] 3.5 g/dL 2.2-4.2 [facility] Urea nitrogen/Creatinine [Mass ratio] 17.7 mg/mg 10-20 [facility] Laboratory - Hematology and Cell countsOrdered By: Matheus Balderas on 12-30-2023 MCH (RBC) [Entitic mass] 30.4 pg 27.0-32.0 [facility] MCHC (RBC) [Mass/Vol] 32.3 g/dL 32-36 [facility] Nucleated RBC/100 WBC (Bld) [Ratio] 0 % 0-5 [facility] Platelet mean volume (Bld) [Entitic vol] 13.2 fL 6.2-12.0 [facility] Platelets (Bld) [#/Vol] 175 10*3/uL 150-450 [facility] No Panel InformationOrdered By: Matheus Balderas on 12-30-2023 Estimated GFR (MDRD) Amer 81 mL/min >60 [facility] Comment on above: GFR Calc Estimated GFR (MDRD) Non-Af Amer 67 mL/min >60 [facility] Comment on above: Non- GFR Calc VLDL Cholesterol 40 mg/dL 5-40 [facility] RBC Auto (Bld) [#/Vol]Ordere d By: Matheus Balderas on 12-30-2023 RBC (Bld) [#/Vol] 4.61 10*6/uL 4.2-5.4 [facility] Serum or plasma calcium deandra urement (mass/volume)Ordered By: Matheus Balderas on 12-30-2023 Calcium [Mass/Vol] 9.8 mg/dL 8.5-10.1 [facility] Serum or plasma creatinine m easurement (mass/volume)Ordered By: Matheus Balderas on 12-30-2023 Creatinine [Mass/Vol] 0.90 mg/dL 0.55-1.02 [facility] Comment on above: The validity of the calculated GFR & GFRAA in patients over 70 years has not been determined. Clinical correlation is essential. Serum or plasma urea nitroge n measurement (mass/volume)Ordered By: Matheus Balderas on 12-30-2023 Urea nitrogen [Mass/Vol] 16 mg/dL 7-18 [facility] Thin prep Papanicolaou smear with manual screeningOrdered By: Matheus Balderas on 12-30-2023 Thin prep Papanicolaou smear with manual screening 4.0 g/dL 3.2-5.0 [facility] Thin prep Papanicolaou smear with manual screening 24 U/L 15-37 [facility] Thin prep Papanicolaou smear with manual screening 5 5-15 [facility] MG Breast Tomosynthesis Scr Blon 01-28-2019 MG Breast Tomosynthesis Scr Bl Patient Name: SAIGE MEJIA Mammography Exam Date/Time 01/28/2019 13:25:00 EDT Exam MG Breast Tomosynthesis BI Scr Ordering Physician DO BALDERAS DOUGLAS R Accession Number [id number] CPT4 Codes 25280 (MG Breast Tomosynthesis Scr Bl), 64751 (MG MAMMO 2D SCREENING) Reason For Exam [...] bilateral MG mammogram digital screening performed at [facility]. March 02, 2015, bilateral screening mammogram performed at [facility]. TISSUE DENSITY: There are scattered fibroglandular densities. . FINDINGS: No suspicious masses, architectural distortions or suspiciously clustered microcalcifications are identified. There are no significant changes when compared with prior studies. Markings on images: BB's = Nipples; skin lesions Open lovelock = Palpable Line = Scar 2D digital [...] pm Signed by: MD BOWER KERISTEN L [facility] Vital Signs Date Time Vital Sign Value Performing Clinician Etiennei aarti 01-26-2025 12:51-0400 Body temperature 98.2 [degF] Dr. Matheus Balderas DO Work Phone: [facility] 01-26-2025 12:51-0400 Diastolic blood pressure 58 mm[Hg] Dr. Matheus Balderas DO Work Phone: [facility] 01-26-2025 12:51-0400 Heart rate 72 /min Dr. Matheus Balderas DO Work Phone: [facility] 01-26-2025 12:51-0400 Respiratory rate 15 /min Dr. Matheus Balderas DO Work Phone: [facility] 01-26-2025 12:51-0400 SaO2% (BldA) [Mass fraction] 98 % Dr. Matheus Balderas DO Work Phone: [facility] 01-26-2025 12:51-0400 Systolic blood pressure 122 mm[Hg] Dr. Matheus Balderas DO Work Phone: [facility] 12-30-2023 10:02-0400 Body height 152.[address] Matheus Balderas Work Phone: [facility] 12-30-2023 10:02-0400 Body mass index (BMI) [Ratio] 25.7 kg/m2 Dr. Matheus Balderas Work Phone: [facility] 12-30-2023 10:02-0400 Body temperature 97.6 [degF] Dr. Matheus Balderas Work Phone: [facility] 12-30-2023 10:02-0400 Body weight 59.[address] Matheus Balderas Work Phone: [facility] 12-30-2023 10:02-0400 Diastolic blood pressure 76 mm[Hg] Dr. Matheus Balderas Work Phone: [facility] 12-30-2023 10:02-0400 Heart rate 68 /min Dr. Matheus Balderas Work Phone: [facility] 12-30-2023 10:02-0400 Respiratory rate 16 /min Dr. Matheus Balderas Work Phone: [facility] 12-30-2023 10:02-0400 SaO2% (BldA) [Mass fraction] 97 % Dr. Matheus Balderas Work Phone: [facility] 12-30-2023 10:02-0400 Systolic blood pressure 124 mm[Hg] Dr. Matheus Balderas Work Phone: [facility] 04-23-2023 11:21-0400 Body mass index (BMI) [Ratio] 23.4 kg/m2 Dr. Matheus Balderas Work Phone: [facility] 04-23-2023 11:21-0400 Body weight 54.[address] Matheus Balderas Work Phone: [facility] 04-23-2023 11:21-0400 Diastolic blood pressure 79 mm[Hg] Dr. Matheus Balderas Work Phone: [facility] 04-23-2023 11:21-0400 Heart rate 79 /min Dr. Matheus Balderas Work Phone: [facility] 04-23-2023 11:21-0400 Respiratory rate 16 /min Dr. Matheus Balderas Work Phone: [facility] 04-23-2023 11:21-0400 SaO2% (BldA) [Mass fraction] 94 % Dr. Matheus Balderas Work Phone: [facility] 04-23-2023 11:21-0400 Systolic blood pressure 118 mm[Hg] Dr. Matheus Balderas Work Phone: [facility] 12-30-2022 17:26-0400 Body temperature 97.8 [degF] Dr. Matheus Balderas Work Phone: [facility] 12-30-2022 17:26-0400 Diastolic blood pressure 58 mm[Hg] Dr. Matheus Balderas Work Phone: [facility] 12-30-2022 17:26-0400 Heart rate 90 /min Dr. Matheus Balderas Work Phone: [facility] 12-30-2022 17:26-0400 Respiratory rate 16 /min Dr. Matheus Balderas Work Phone: [facility] 12-30-2022 17:26-0400 SaO2% (BldA) [Mass fraction] 98 % Dr. Matheus Balderas Work Phone: [facility] 12-30-2022 17:26-0400 Systolic blood pressure 102 mm[Hg] Dr. Matheus Balderas Work Phone: [facility] Encounters Encounter Date Encounter Type Care Provider Facility Start: 01-26-2025 End: 01-26-2025 Patient encounter procedure Nehemiah Corona [facility] Work Phone: Start: 01-26-2025 End: 01-26-[address] Matheus Balderas DO Work Phone: [facility] Work Phone: Start: 12-30-2023 End: 12-30-[address] Matheus Balderas Work Phone: [facility] Work Phone: Start: 12-30-2023 End: 12-30-[address] Matheus Balderas Work Phone: [facility] Work Phone: Start: 04-23-2023 End: 04-23-[address] Matheus Balderas Work Phone: [facility] Work Phone: Start: 04-23-2023 End: 04-23-[address] Matheus Balderas Work Phone: [facility] Work Phone: Start: 12-30-2022 End: 12-30-[address] Matheus Balderas Work Phone: [facility] Work Phone: Procedures Date Procedure Procedure Detail Performing Clinician Start: 04-23-2023 X-ray of both feet Dr. Matheus Balderas Work Phone: Plan of Treatment Date Care Activity Detail Author Start: 04-23-2023 Patient referral [facility] Work Phone: MG Breast - bilateral Screening [facility] Patient referral [facility] Work Phone: Immunizations Immunization Date Immunization Notes Care Provider Fa cility 03-06-2021 tetanus toxoid, redu mendez diphtheria toxoid, and acellular pertussis vaccine, adsorbed Dr. Matheus Balderas Work Phone: [facility] Payers Date Payer Category Payer Self-pay [id number] 2025 Unknown [id number] Unknown SELF INS CONSTITUTION STATE SE [id number] Unknown [facility] [employer] [id number] Unknown SELF INS CONSTITUTION STATE SE [id number] Unknown [id number] Social History Date Type Detail Facility Start: 04-29-2023 End: 08-13-2023 Tobacco smoking status NHIS Unknown if ever smoked [facility] Start: 1960 Sex Assigned At Female [facility] Start: 08-13-2023 Tobacco smoking stat us NHIS Never smoked tobacco (finding) [facility] Evaluation note Note Date & Type Note Facility Evaluation note Diagnosis Onset Date Acute sinusitis acute Fracture of metatarsal of right foot, closed acute [facility] Work Phone: Evaluation note Note Date & Type Note Facility Evaluation note Diagnosis Onset Date Annual physical exam acute IBS (irritable bowel syndrome) chronic [facility] Work Phone: Evaluation note Note Date & Type Note Facility Evaluation note No assessment information availa bartolo [facility] Work Phone: Reason for referral (narrative) Note Date & Type Note Facility Reason for referral (narrative) No reason for referral information available [facility] Work Phone: Summary Purpose Family History [...] section and content) DATE CREATED AUTHOR 03/25/2019 [facility] [employer] DATE CREATED AUTHOR AUTHOR'S ORGANIZ ATION 04/15/2025 [facility] Care Teams (unrecognized sec tion and content) [...] BE BASED ON THE PRIMARY CLINICAL RECORDS. [facility] [employer] [facility]. provides no warranty or guarantee of the accuracy or completeness of information in this document.
== END | disposition home or self-care (01) ==
LOC: US 08:25
PROVIDERS: PCP Family Medicine; Referring Provider Family Medicine; Visit Provider Family Medicine
DX: R10.11 Right upper quadrant pain (principal)
CPT/HCPCS: 76705